=== PATIENT | male | born 1970 | race Hispanic/Latino ===

== ENCOUNTER 2018-12-14 22:00 | Inpatient (IN) | payer MEDICAID ==
--- NOTE | 2018-12-14 22:48 | ED PDOC ---
Arrival/HPI - General Chief Complaint: GI Problem Time Seen by Provider: 12/14/18 22:10 Historian: Patient - History of Present Illness Narrative History of Present Illness (Text): 12/14/18 22:38 48 year old M with Pmh of chronic avascular necrosis (hip), HIV,presents with complaint of discharge from penis and anus which he states is gonorrhea. Patient is sexually active.Also complains of painful hemorrhoid.States he had some rectal blood on occasion. Patient recalls last seeing his doctor 1 month ago. Patient denies any fevers, chills, headache, dizziness, chest pain, shortness of breath, cough, diaphoresis, abdominal pain, nausea, vomiting, diarrhea. Time/Duration: < month Symptom Course: Unchanged Activities at Onset: Light Context: Home Past Medical History - Provider Review Nursing Documentation Reviewed: Yes - Infectious Disease Hx of Infectious Diseases: None - Cardiac Hx Cardiac Disorders: No - Pulmonary Hx Respiratory Disorders: No - Neurological Hx Neurological Disorder: No - HEENT Hx HEENT Disorder: No - Renal Hx Renal Disorder: No - Endocrine/Metabolic Hx Endocrine Disorders: No - Hematological/Oncological Hx Blood Disorders: Yes - Integumentary Hx Dermatological Disorder: No - Musculoskeletal/Rheumatological Hx Musculoskeletal Disorders: Yes Hx Arthritis: Yes Hx Osteoarthritis: Yes Other/Comment: vascular necrosis bilat hips - Gastrointestinal Hx Gastrointestinal Disorders: No - Genitourinary/Gynecological Hx Genitourinary Disorders: Yes Hx Sexually Transmitted Diseases: Yes (gonnorrhea) - Psychiatric Hx Psychophysiologic Disorder: No Hx Substance Use: No - Anesthesia Hx Anesthesia: No Family/Social History - Physician Review Nursing Documentation Reviewed: Yes Family/Social History: No Known Family HX Smoking Status: Never Smoked Hx Alcohol Use: No Hx Substance Use: No Allergies/Home Meds Allergies/Adverse Reactions: Allergies Penicillins Allergy (Verified 12/14/18 22:11) URTICARIA Home Medications: Home Meds Medication Instructions Recorded Confirmed Elviteg/Lynne/Emtric/Tenofo Dis 1 tab PO DAILY 12/14/18 12/14/18 [Stribild Tablet] Sulfamethoxazole/Trimethoprim 1 tab PO DAILY 12/14/18 12/14/18 [Bactrim DS Tab] oxyCODONE/Acetaminophen [Percocet 1 tab PO Q6H PRN 12/14/18 12/14/18 5/325 mg Tab] Review of Systems - Physician Review All systems were reviewed & negative as marked: Yes - Review of Systems Constitutional: Normal Eyes: Normal ENT: Normal Respiratory: Normal Cardiovascular: Normal Gastrointestinal: Other (rectal pain) Skin: Normal Neurological: Normal Endocrine: Normal Hemo/Lymphatic: Normal Psychiatric: Normal Physical Exam Vital Signs Reviewed: Yes Vital Signs Temp Pulse Resp BP Pulse Ox 12/14/18 22:14 98.1 F 76 18 107/86 100 Temperature: Afebrile Blood Pressure: Normal Pulse: Regular Respiratory Rate: Normal Appearance: Positive for: Well-Appearing, Non-Toxic, Comfortable Pain Distress: Moderate Mental Status: Positive for: Alert and Oriented X 3 - Systems Exam Head: Present: Atraumatic, Normocephalic Pupils: Present: PERRL Extroacular Muscles: Present: EOMI Conjunctiva: Present: Normal Mouth: Present: Moist Mucous Membranes Neck: Present: Normal Range of Motion Respiratory/Chest: Present: Clear to Auscultation, Good Air Exchange. No: Respiratory Distress, Accessory Muscle Use Cardiovascular: Present: Regular Rate and Rhythm, Normal S1, S2. No: Murmurs Abdomen: No: Tenderness, Distention, Peritoneal Signs Rectal: Present: Hemorrhoids (Painful, external, non thombrosed hemorrhoid), Other (Purulent rectal discharge) Genitourinary Male: Present: Penile Discharge (white milky, yellowish) Back: Present: Normal Inspection Upper Extremity: Present: Normal Inspection. No: Cyanosis, Edema Lower Extremity: Present: Normal Inspection. No: Edema Neurological: Present: GCS=15, Speech Normal Skin: Present: Warm, Dry, Normal Color. No: Rashes Psychiatric: Present: Alert, Oriented x 3, Normal Insight, Normal Concentration Medical Decision Making ED Course and Treatment: 12/14/18 22:53 Impression: 48 year old M presents with cc of GI bleed. Differential Diagnosis included but are not limited to: -- Hemorrhoids -- STD -- Rectal Abscess -- GI bleed Plan: -- CT Abd/ Pelvis IV contrast -- Chlamydia/GC RNA, TMA -- Labs -- Reassess and disposition Prior Visits: Notes and results from previous visits were reviewed. Progress Notes: 12/15/18 01:48 Case was discussed with Dr. Jeffers. Case was discussed with the medical supply technician and president & ceo [employer]. - RAD Interpretation Narrative RAD Interpretations (Text): 12/15/18 00:50 CT SCAN OF THE ABDOMEN AND PELVIS WITH CONTRAST --Perianal abscess formation measuring 4.7x3.2 cm with associated gas densities. --Prominent surrounding inflammatory fat stranding suggestive of surrounding cellulitis. --Moderately enlarged prostate. --Hypodense areas are noted in the prostate with the largest measuring 1.3 cm on the left side. Findings represent prostatic nodules are again secondary to an infectious/inflammatory pathology like multifocal prostatitis and phlegmonous changes. Clinical evaluation and followup are suggested. --Moderate constipation is noted. --Uncomplicated colonic diverticulosis is seen. --Moderate diffuse spondylosis. Event Promoter: Radiologist - Tatyanaibanne Statement The provider has reviewed the documentation as recorded by the Vladislav Johnson All medical record entries made by the Vladislav were at my direction and personally dictated by me. I have reviewed the chart and agree that the record accurately reflects my personal performance of the history, physical exam, medical decision making, and the department course for this patient. I have also personally directed, reviewed, and agree with the discharge instructions and disposition. Disposition/Present on Arrival - Present on Arrival Any Indicators Present on Arrival: No History of DVT/PE: No History of Uncontrolled Diabetes: No Urinary Catheter: No History of Decub. Ulcer: No History Surgical Site Infection Following: None - Disposition Have Diagnosis and Disposition been Completed?: Yes Diagnosis: Perianal abscess, Cellulitis, STD (male) Disposition: HOSPITALIZED Disposition Time: 01:47 Patient Plan: Admission Patient Problems: Current Active Problems Problem Status Onset Cellulitis Acute Perianal abscess Acute STD (male) Acute Condition: STABLE Discharge Instructions (ExitCare): Cellulitis (ED) Referrals: Carlos Jeter MD [Primary Care Provider] - Follow up with primary Forms: [employer] (Swazi)
[2018-12-14 23:28] LABS: ALB/GLOB RATIO 0.8 (1.1-1.8); ALBUMIN 3.4 g/dL (3.0-4.8); ALT/SGPT 9 U/L (7-56); AST/SGOT 25 U/L (17-59); BLOOD UREA NITROGEN 22 mg/dL (7-21); CALCIUM 8.5 mg/dL (8.4-10.5); GFR NON-AFRICAN AMERICAN > 60; HEMOGLOBIN 10.4 g/dL (14.0-18.0); MEAN CELL VOLUME 90.2 fl (80.0-105.0); MEAN CORPUSCULAR HEMOGLOBIN 28.4 pg (25.0-35.0); MEAN CORPUSCULAR HGB CONC 31.5 g/dl (31.0-37.0); RBC 3.66 10^6/uL (3.5-6.1); RED CELL DISTRIBUTION WIDTH 14.3 % (11.5-14.5); WHITE BLOOD COUNT 5.8 10^3/uL (4.5-11.0)
[2018-12-14] MEDS ORDERED: Iohexol 350 MG/100 ML VIAL ONE (23:47)
[2018-12-15 00:27] LABS: URINE BILIRUBIN NEGATIVE (NEGATIVE); URINE BLOOD SMALL (NEGATIVE); URINE GLUCOSE (UA) NEGATIVE (NEGATIVE); URINE LEUKOCYTE ESTERASE MODERATE Leu/uL (NEGATIVE); URINE PROTEIN 30 mg/dL (<30 mg/dL)
[2018-12-15 00:34] LABS: URINE APPEARANCE SL CLOUDY (CLEAR); URINE COLOR YELLOW (YELLOW)
[2018-12-15 00:40] LABS: URINE EPITHELIAL CELLS 0 - 2 /hpf (0-5); URINE RBC 0 - 2 /hpf (0-2); URINE WBC TNTC /hpf (0-6)
[2018-12-15 00:41] LABS: URINE BACTERIA SMALL /hpf
[2018-12-15] MEDS ORDERED: Gentamicin 240 MG in Sodium Chloride 0.9% 100 ML IM ONE (01:38)
[2018-12-15] MEDS ORDERED: Ciprofloxacin 400mg/200ml D5W 400 MG/200 ML BAG IV STA (01:40)
[2018-12-15] MEDS ORDERED: metroNIDAZOLE IV 500 mg/100 ml 500 MG/100 ML BAG IV STA (01:41)
[2018-12-15] MEDS ORDERED: Gentamicin 80 mg/2mL Inj. IM ONE (01:45)
[2018-12-15] MEDS: Morphine 2 mg/ml ISec IVP PRN ×2 (03:21→13:41)
--- NOTE | 2018-12-15 03:36 | CP.PCM.HP ---
<Redd Monsivais - Last Filed: 12/15/18 04:18> History of Present Illness - History of Present Illness History of Present Illness: PGY-1 History and Physical for Dr. Jeffers Patient is a 48 year old male with PMHx HIV, avascular necrosis of the hip who presents with complaint of penile discharge and rectal pain. Patient states he has had these symptoms for a couple of months. Patient states he first noticed the penile discharge a couple of months ago, stating he contracted an STD from receiving oral sex from a female partner. Patient states soon thereafter he developed rectal pain associated with occasional bleeding. Patient denies being sexually active with multiple partners. Patient admits to subjective fevers in the past, but denies fevers at present. In regards to HIV treatment, patient states he most recently had CD4 count checked 2 months ago, but is unsure which doctor he follows with. He states that his CD4 count is low and his viral load is high. He admitted that he has not been taking his HIV medications for several months due to personal issues at home, noting that he recently had a son pass away. Patient states he has been "bed ridden" for the past year and a half, though he lives alone and cares for himself. He admits to feeling chronically weak and fatigued. PMHx: HIV, avascular necrosis All: Penicillin (Urticaria) Surgeries: Eye trauma surgery as a child Social: Denies tobacco, alcohol, or drug use (denies IVDU). States received STD from single female sexual partner, denies multiple or same-sex partners. Lives alone in apartment, cares for himself. Medications: -Stribild 1 tab PO daily -Bactrim 1 tab PO daily -Percocet 5/325 mg PO Q6 prn -Ensure plus nutritional supplement PMD: Pt unsure of PMD or infectious disease doctor with whom he has followed in the past Present on Admission - Present on Admission Any Indicators Present on Admission: No Review of Systems - Constitutional Constitutional: Fatigue, Weakness. absent: Chills, Fever - EENT Eyes: absent: Blurred Vision, Change in Vision Ears: absent: Dizziness - Cardiovascular Cardiovascular: absent: Chest Pain, Dyspnea - Respiratory Respiratory: absent: Cough, Dyspnea - Gastrointestinal Gastrointestinal: absent: Abdominal Pain, Diarrhea, Nausea, Vomiting Additional comments: Rectal pain - Genitourinary Genitourinary: Dysuria. absent: Difficulty Urinating, Flank Pain, Urinary Incontinence, Urinary Frequency - Reproductive: Male Reproductive:Male: Penile Discharge - Musculoskeletal Musculoskeletal: absent: Back Pain, Neck Pain - Neurological Neurological: absent: Confusion, Dizziness, Numbness - Psychiatric Psychiatric: absent: Anxiety, Depression - Endocrine Endocrine: Fatigue. absent: Palpitations - Hematologic/Lymphatic Hematologic: absent: Easy Bleeding, Easy Bruising Past Patient History - Infectious Disease Hx of Infectious Diseases: None - Past Social History Smoking Status: Never Smoked - CARDIAC Hx Cardiac Disorders: No - PULMONARY Hx Respiratory Disorders: No - NEUROLOGICAL Hx Neurological Disorder: No - HEENT Hx HEENT Problems: No - RENAL Hx Chronic Kidney Disease: No - ENDOCRINE/METABOLIC Hx Endocrine Disorders: No - HEMATOLOGICAL/ONCOLOGICAL Hx Blood Disorders: Yes - INTEGUMENTARY Hx Dermatological Problems: No - MUSCULOSKELETAL/RHEUMATOLOGICAL Hx Musculoskeletal Disorders: Yes Hx Arthritis: Yes Hx Osteoarthritis: Yes Other/Comment: vascular necrosis bilat hips - GASTROINTESTINAL Hx Gastrointestinal Disorders: No - GENITOURINARY/GYNECOLOGICAL Hx Genitourinary Disorders: Yes Hx Sexually Transmitted Disorders: Yes (gonnorrhea) - PSYCHIATRIC Hx Psychophysiologic Disorder: No Hx Substance Use: No - SURGICAL HISTORY Hx Surgeries: No - ANESTHESIA Hx Anesthesia: No Meds Allergies/Adverse Reactions: Allergies Allergy/AdvReac Type Severity Reaction Status Date / Time Penicillins Allergy URTICARIA Verified 12/14/18 22:11 Physical Exam - Constitutional Appears: No Acute Distress, Cachectic, Chronically Ill - Head Exam Head Exam: ATRAUMATIC, NORMOCEPHALIC - Eye Exam Eye Exam: EOMI, Normal appearance - ENT Exam ENT Exam: Mucous Membranes Dry - Respiratory Exam Respiratory Exam: Clear to Auscultation Bilateral - Cardiovascular Exam Cardiovascular Exam: REGULAR RHYTHM, +S1, +S2 - GI/Abdominal Exam GI & Abdominal Exam: Normal Bowel Sounds, Soft. absent: Tenderness - Rectal Exam Rectal Exam: Hemorrhoids. absent: Black Stool, Bloody Stool Additional comments: No active bleeding or prurulence. No abscess/mass appreciated on rectal exam. Rectum exquisitely tender to palpation. - Exam Exam: Uretheral Discharge (Clear, watery discharge). absent: Circumcision, Scrotal Swelling External exam: absent: Erythema, Lacerations, Swelling - Extremities Exam Extremities exam: Positive for: normal inspection. Negative for: pedal edema, tenderness - Neurological Exam Neurological exam: Alert, CN II-XII Intact, Oriented x3 - Psychiatric Exam Psychiatric exam: Normal Affect, Normal Mood - Skin Skin Exam: Dry, Intact Results - Vital Signs Recent Vital Signs: Last Vital Signs Temp 98.1 F 12/14/18 22:14 Pulse 69 12/15/18 03:14 Resp 15 12/15/18 03:14 BP 137/41 L 12/15/18 03:14 Pulse Ox 100 12/15/18 03:14 - Labs Result Diagrams: 12/14/18 23:00 12/14/18 23:00 Labs: Laboratory Results - last 24 hr 12/14/18 12/14/18 12/15/18 23:00 23:00 00:15 WBC 5.8 RBC 3.66 Hgb 10.4 L Hct 33.0 L MCV 90.2 MCH 28.4 MCHC 31.5 RDW 14.3 Plt Count 238 MPV 10.0 Sodium 140 Potassium 3.8 Chloride 102 Carbon Dioxide 30 Anion Gap 12 BUN 22 H Creatinine 0.8 Est GFR ( Amer) > 60 Est GFR (Non-Af Amer) > 60 Random Glucose 101 Calcium 8.5 Total Bilirubin 0.7 AST 25 ALT 9 Alkaline Phosphatase 90 Total Protein 8.0 Albumin 3.4 Globulin 4.5 Albumin/Globulin Ratio 0.8 L Urine Color Yellow Urine Appearance Sl cloudy Urine pH 7.0 Ur Specific [place] 1.015 Urine Protein 30 H Urine Glucose (UA) Negative Urine Ketones Negative Urine Blood Small H Urine Nitrate Negative Urine Bilirubin Negative Urine Urobilinogen 2.0 H Ur Leukocyte Esterase Moderate H Urine RBC 0 - 2 Urine WBC Tntc H Ur Epithelial Cells 0 - 2 Urine Bacteria Small Assessment & Plan - Assessment and Plan (Free Text) Assessment: Perirectal Abscess CT abdomen/pelvis 12/15: --Perianal abscess formation measuring 4.7x3.2 cm with associated gas densities. --Prominent surrounding inflammatory fat stranding suggestive of surrounding cellulitis. --Moderately enlarged prostate. --Hypodense areas are noted in the prostate with the largest measuring 1.3 cm on the left side. Findings represent prostatic nodules are again secondary to an infectious/inflammatory pathology like multifocal prostatitis and phlegmonous changes. Clinical evaluation and followup are suggested. --Moderate constipation is noted. --Uncomplicated colonic diverticulosis is seen. --Moderate diffuse spondylosis. -Afebrile, no leukocytosis -Surgery consulted, Dr. Skinner - f/u recs -ID consulted, Dr. Mendoza - f/u recs Abx: -Penicillin allergic (urticaria) -Received Cipro, Azithromycin, Gentamycin, and Flagyl in ED -Meropenem 1gm IV Q8 to start 12/16 -Vancomycin 1gm IV daily to start 12/16 -Morphine 2mg IV Q6 prn Penile Discharge -GC/Chlamydia - f/u -Merem/Vanco Possible UTI -Moderate leukocyte esterase on UA -Dorinda/Vanco HIV -F/u CD4 count -ID, Dr. Mendoza Meds -Bactrim 1 tab PO daily -Home Stribild held - combination pill not available from inpatient pharmacy. Discussed with patient, he will obtain his home medications in the morning to take daily as inpatient. PPx -DVT: Heparin 5000 U SC daily -Regular diet Assessment and plan discussed with Dr. Zeyad Monsivais, PGY-1 <Lacie Jeffers - Last Filed: 12/15/18 06:38> Results - Vital Signs Recent Vital Signs: Last Vital Signs Temp 98.1 F 12/14/18 22:14 Pulse 73 12/15/18 03:39 Resp 18 12/15/18 03:39 BP 137/41 L 12/15/18 03:14 Pulse Ox 100 12/15/18 03:14 - Labs Result Diagrams: 12/14/18 23:00 12/14/18 23:00 Labs: Laboratory Results - last 24 hr 12/14/18 12/14/18 12/15/18 23:00 23:00 00:15 WBC 5.8 RBC 3.66 Hgb 10.4 L Hct 33.0 L MCV 90.2 MCH 28.4 MCHC 31.5 RDW 14.3 Plt Count 238 MPV 10.0 Sodium 140 Potassium 3.8 Chloride 102 Carbon Dioxide 30 Anion Gap 12 BUN 22 H Creatinine 0.8 Est GFR ( Amer) > 60 Est GFR (Non-Af Amer) > 60 Random Glucose 101 Calcium 8.5 Total Bilirubin 0.7 AST 25 ALT 9 Alkaline Phosphatase 90 Total Protein 8.0 Albumin 3.4 Globulin 4.5 Albumin/Globulin Ratio 0.8 L Urine Color Yellow Urine Appearance Sl cloudy Urine pH 7.0 Ur Specific [place] 1.015 Urine Protein 30 H Urine Glucose (UA) Negative Urine Ketones Negative Urine Blood Small H Urine Nitrate Negative Urine Bilirubin Negative Urine Urobilinogen 2.0 H Ur Leukocyte Esterase Moderate H Urine RBC 0 - 2 Urine WBC Tntc H Ur Epithelial Cells 0 - 2 Urine Bacteria Small Attending/Attestation - Attestation I have personally seen and examined this patient.: Yes I have fully participated in the care of the patient.: Yes I have reviewed all pertinent clinical information: Yes Notes (Text): 12/15/18 06:37 seen and examined. discussed with resident. A&P as above.
--- NOTE | 2018-12-15 05:49 | CP.PCM.CON ---
History of Present Illness - History of Present Illness History of Present Illness: Surgery Consult note. Dr. Skinner 48yo M with PMHx of HIV (recent medication non-compliance), Avascular Necrosis of bilateral hips who [place] [facility] with penile discharge and Rectal discharge and pain. Patient reports penile discharge which started 2 months ago and was self treated with bactrim at home. Approximately 1 month ago, he noted rectal pain and 2 weeks ago, he noted rectal discharge. He denies any fevers or chills. States that he has pain with defecation as well. No Chest pain, no shortness of breath. No N/V/D. No abdominal pain. Does report penile discharge off and on. No sick contacts PMHx: HIV, Avascular Necrosis of bilateral hips PSHx: Eye surgery as child Family Hx: non-contributory Social Hx: Denies Tobacco use; Denies Alcohol use; Denies illicit drugs Allergy: PCNs Review of Systems - Review of Systems All systems: reviewed and no additional remarkable complaints except - Constitutional Constitutional: Lethargy, Malaise. absent: Chills, Fever - EENT Ears: absent: Ear Pain - Cardiovascular Cardiovascular: absent: Chest Pain, Dyspnea - Respiratory Respiratory: absent: Cough, Dyspnea - Gastrointestinal Gastrointestinal: absent: Abdominal Pain, Melena, Nausea, Vomiting Additional comments: Rectal pain and discharge - Genitourinary Genitourinary: Dysuria - Reproductive: Male Reproductive:Male: Penile Discharge Past Patient History - Infectious Disease Hx of Infectious Diseases: None - Past Medical History & Family History Past Medical History?: Yes Past Family History: Reviewed and not pertinent - Past Social History Smoking Status: Never Smoked Alcohol: None Drugs: Denies - CARDIAC Hx Cardiac Disorders: No - PULMONARY Hx Respiratory Disorders: No - NEUROLOGICAL Hx Neurological Disorder: No - HEENT Hx HEENT Problems: No - RENAL Hx Chronic Kidney Disease: No - ENDOCRINE/METABOLIC Hx Endocrine Disorders: No - HEMATOLOGICAL/ONCOLOGICAL Hx Blood Disorders: Yes - INTEGUMENTARY Hx Dermatological Problems: No - MUSCULOSKELETAL/RHEUMATOLOGICAL Hx Musculoskeletal Disorders: Yes Hx Arthritis: Yes Hx Osteoarthritis: Yes Other/Comment: vascular necrosis bilat hips - GASTROINTESTINAL Hx Gastrointestinal Disorders: No - GENITOURINARY/GYNECOLOGICAL Hx Genitourinary Disorders: Yes Hx Sexually Transmitted Disorders: Yes (gonnorrhea) - PSYCHIATRIC Hx Psychophysiologic Disorder: No Hx Substance Use: No - SURGICAL HISTORY Hx Surgeries: No - ANESTHESIA Hx Anesthesia: No Meds Allergies/Adverse Reactions: Allergies Allergy/AdvReac Type Severity Reaction Status Date / Time Penicillins Allergy URTICARIA Verified 12/14/18 22:11 - Medications Medications: Current Medications Heparin Sodium (Porcine) (Heparin) 5,000 units SC Q12 ESTUARDO; Protocol Meropenem (Merrem Iv 1 Gm Premix) 1 gm in 50 mls @ 12.5 mls/hr IVPB Q8 ESTUARDO; Protocol Stop: 12/16/18 17:59 Vancomycin HCl (Vancomycin 1gm) 1 gm in 250 mls @ 167 mls/hr IVPB DAILY ESTUARDO; Protocol Morphine Sulfate (Morphine) 2 mg IVP Q6 PRN PRN Reason: Pain, moderate (4-7) Last Admin: 12/15/18 03:21 Dose: 2 mg Non-Formulary Medication (Elviteg/Lynne/Emtric/Tenofo Dis [Stribild Tablet]) 1 tab PO DAILY ESTUARDO Trimethoprim/Sulfamethoxazole (Bactrim Ds Tab) 1 tab PO DAILY ESTUARDO; Protocol Physical Exam - Constitutional Appears: Non-toxic, No Acute Distress, Cachectic, Chronically Ill - Head Exam Head Exam: ATRAUMATIC, NORMAL INSPECTION, NORMOCEPHALIC - Eye Exam Eye Exam: EOMI, Normal appearance. absent: Scleral icterus - ENT Exam ENT Exam: Mucous Membranes Moist - Respiratory Exam Respiratory Exam: NORMAL BREATHING PATTERN. absent: Accessory Muscle Use, Respiratory Distress - GI/Abdominal Exam GI & Abdominal Exam: Soft. absent: Distended, Firm, Guarding, Tenderness - Rectal Exam Additional comments: Perianal fluctuance. Purulent discharge noted into the anal canal when rectal performed. No melena or gross blood noted. - Extremities Exam Extremities exam: Positive for: normal inspection. Negative for: calf tenderness - Back Exam Back exam: NORMAL INSPECTION - Neurological Exam Neurological exam: Alert, Oriented x3 - Psychiatric Exam Psychiatric exam: Normal Affect, Normal Mood - Skin Skin Exam: Dry, Intact, Normal Color, Warm Results - Vital Signs Recent Vital Signs: Last Vital Signs Temp 98.1 F 12/14/18 22:14 Pulse 73 12/15/18 03:39 Resp 18 12/15/18 03:39 BP 137/41 L 12/15/18 03:14 Pulse Ox 100 12/15/18 03:14 - Labs Result Diagrams: 12/14/18 23:00 12/14/18 23:00 Labs: Laboratory Results - last 24 hr 12/14/18 12/14/18 12/15/18 23:00 23:00 00:15 WBC 5.8 RBC 3.66 Hgb 10.4 L Hct 33.0 L MCV 90.2 MCH 28.4 MCHC 31.5 RDW 14.3 Plt Count 238 MPV 10.0 Sodium 140 Potassium 3.8 Chloride 102 Carbon Dioxide 30 Anion Gap 12 BUN 22 H Creatinine 0.8 Est GFR ( Amer) > 60 Est GFR (Non-Af Amer) > 60 Random Glucose 101 Calcium 8.5 Total Bilirubin 0.7 AST 25 ALT 9 Alkaline Phosphatase 90 Total Protein 8.0 Albumin 3.4 Globulin 4.5 Albumin/Globulin Ratio 0.8 L Urine Color Yellow Urine Appearance Sl cloudy Urine pH 7.0 Ur Specific [place] 1.015 Urine Protein 30 H Urine Glucose (UA) Negative Urine Ketones Negative Urine Blood Small H Urine Nitrate Negative Urine Bilirubin Negative Urine Urobilinogen 2.0 H Ur Leukocyte Esterase Moderate H Urine RBC 0 - 2 Urine WBC Tntc H Ur Epithelial Cells 0 - 2 Urine Bacteria Small Assessment & Plan - Assessment and Plan (Free Text) Assessment: 48yo M with perianal abscess - CT noted with 4.7 x 3.2cm perianal abscess Plan: - Possible OR today - NPO for now - Continue warm compresses and sitz baths - Abx - Pain management Further recs as per Dr. Brody Thurston PGY2 surgery
[2018-12-15 07:06] LABS: INR 1.19; PARTIAL THROMBOPLASTIN TIME 31.5 Seconds (26.9-38.3); PROTHROMBIN TIME 13.4 SECONDS (9.4-12.5)
[2018-12-15 07:12] LABS: ALB/GLOB RATIO 0.8 (1.1-1.8); ALBUMIN 3.7 g/dL (3.0-4.8); ALT/SGPT 6 U/L (7-56); AST/SGOT 33 U/L (17-59); BLOOD UREA NITROGEN 19 mg/dL (7-21); CALCIUM 8.6 mg/dL (8.4-10.5); GFR NON-AFRICAN AMERICAN > 60
[2018-12-15 07:15] LABS: BASO # 0.02 K/mm3 (0.0-2.0); BASO % 0.3 % (0.0-3.0); EOS # 0.5 (0.0-0.7); EOS % 7.5 % (1.5-5.0); HEMOGLOBIN 10.3 g/dL (14.0-18.0); LYMPH # 1.4 (1.2-3.4); LYMPH % 22.1 % (22.0-35.0); MEAN CELL VOLUME 89.1 fl (80.0-105.0); MEAN CORPUSCULAR HEMOGLOBIN 28.1 pg (25.0-35.0); MEAN CORPUSCULAR HGB CONC 31.5 g/dl (31.0-37.0); MEAN PLATELET VOLUME 10.2 fl (7.0-11.0); MONO # 0.7 (0.1-0.6); MONO % 11.9 % (1.0-6.0); RBC 3.67 10^6/uL (3.5-6.1); RED CELL DISTRIBUTION WIDTH 14.3 % (11.5-14.5); WHITE BLOOD COUNT 6.1 10^3/uL (4.5-11.0)
[2018-12-15 08:57] LABS: IRON 38 ug/dL (45-180)
[2018-12-15 09:07] LABS: % IRON SATURATION 20 % (20-55); TOTAL IRON BINDING CAPACITY 195 ug/dL (261-462)
[2018-12-15] MEDS: Tmp-Smz 800 mg-160 mg DS Tab PO SCH (09:25)
[2018-12-15] MEDS: Vancomycin 1gm in NS 250ml 1 GM/250 ML BAG IVPB SCH (09:25)
[2018-12-15] MEDS ORDERED: Non Formulary Medication (Elviteg/Cobi/Emtric/Tenofo Dis [Stribild Tablet] 1 TAB) PO SCH (10:00)
--- NOTE | 2018-12-15 10:46 | CT ---
Date of service: 12/14/2018 PROCEDURE: CT Abdomen and Pelvis with contrast HISTORY: r/o rectal abscess COMPARISON: None. TECHNIQUE: Contrast dose: 100 cc of Omni 350 Radiation dose: Total exam DLP = 216.44 mGy-cm. This CT exam was performed using one or more of the following dose reduction techniques: Automated exposure control, adjustment of the mA and/or kV according to patient size, and/or use of iterative reconstruction technique. FINDINGS: LOWER THORAX: Unremarkable. LIVER: Unremarkable. No gross lesion or ductal dilatation. GALLBLADDER AND BILE DUCTS: Unremarkable. PANCREAS: Unremarkable. No gross lesion or ductal dilatation. SPLEEN: Unremarkable. ADRENALS: Unremarkable. No mass. KIDNEYS AND URETERS: Unremarkable. No hydronephrosis. No solid mass. VASCULATURE: Unremarkable. No aortic aneurysm. No aortic atherosclerotic calcification or mural plaque present. BOWEL: There is a perianal abscess containing fluid and gas densities. This measures approximately 2 x 4 cm. APPENDIX: Normal appendix. PERITONEUM: Unremarkable. No free fluid. No free air. LYMPH NODES: Unremarkable. No enlarged lymph nodes. BLADDER: Unremarkable. REPRODUCTIVE: The prostate is enlarged and heterogeneous in density with several hypodense nodules. Prostate measures 37 x 55 mm BONES: No acute fracture. OTHER FINDINGS: The report concurs with the preliminary [facility] report IMPRESSION: There is a perianal abscess containing fluid and gas densities. This measures approximately 2 x 4 cm. The prostate is enlarged and heterogeneous in density with several hypodense nodules. Prostate measures 37 x 55 mm
[2018-12-15] MEDS ORDERED: Bupivacaine 0.5% 50 ML IJ ONE ×2 (12:12→12:30)
--- NOTE | 2018-12-15 20:49 | CON ---
DATE: 12/15/2018 The patient was seen earlier today. CHIEF COMPLAINT: Rectal pain, discomfort x2 months. HISTORY OF PRESENT ILLNESS: This is a 48-year-old male with positive HIV, possibly AIDS, noncompliant to his HIV medication, which is Stribild; follows at clinic in [place] although he has not been going there, and he had a penile discharge, an anal discharge and he is having anal pain and discovered to have rectal abscess and admitted to the hospital for drainage. REVIEW OF SYSTEMS: Review of systems are noted. PAST MEDICAL HISTORY: Significant for HIV and AIDS, arthritis, bronchitis, and the patient also has avascular necrosis of the hip. He has had gonorrhea in the past. MEDICATIONS: He has been on Bactrim, PCP prophylaxis which means that his T cells were less than 200. 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 PHYSICAL EXAMINATION: GENERAL: He is in bed. No acute distress. VITAL SIGNS: Temperature of 98, blood pressure is 130/40, respiratory rate of 18, and heart rate of 69. HEENT: Unremarkable. NECK: Supple. LUNGS: Decreased breath sounds. HEART: Normal S1 and S2. GASTROINTESTINAL: Abdomen is soft and nontender. RECTAL: Reveals a discharge, there is internal drainage and also what appears to be a perirectal abscess. LABORATORY DATA: Laboratory examination reveals a white count of 5, hemoglobin of 10, and platelets of 238. Chemistry reveals a BUN of 22 and creatinine of 0.8. Urinalysis is noted. Microbiology is pending. The patient had a CAT scan of the abdomen and pelvis that reveals a perianal abscess, containing fluid, gas and densities. His history and physical examination is noted. ASSESSMENT AND PLAN: A 48-year-old male with acquired immunodeficiency syndrome and perianal abscess, WHO IS ALLERGIC TO PENICILLIN, was treated with meropenem, was looked for chlamydia, gonorrhea, and syphilis. I will make further recommendations. Justino Mendoza MD
--- NOTE | 2018-12-15 22:16 | PCM.SURG1 ---
Surgeon's Initial Post Op Note - Surgeon's Notes Surgeon: Dr. Skinner Hoisting Engineer Pile Driving: Dr. Goode PGY3 Type of Anesthesia: Local Pre-Operative Diagnosis: Perirectal abscess Operative Findings: same Post-Operative Diagnosis: same Operation Performed: incision and drainage of perirectal abscess Specimen/Specimens Removed: purulent fluid Estimated Blood Loss: EBL {In ML}: 5 Blood Products Given: N/A Drains Used: No Drains Post-Op Condition: Good Date of Surgery/Procedure: 12/15/18 Time of Surgery/Procedure: 12:30
[2018-12-16] MEDS: Meropenem IV 1 gm in NS 1 GM/50 ML BAG IVPB SCH ×3 (05:28→22:46)
[2018-12-16 07:11] LABS: BASO # 0.03 K/mm3 (0.0-2.0); BASO % 0.8 % (0.0-3.0); EOS # 0.5 (0.0-0.7); EOS % 14.8 % (1.5-5.0); LYMPH # 1.1 (1.2-3.4); LYMPH % 31.6 % (22.0-35.0); MEAN CELL VOLUME 88.9 fl (80.0-105.0); MEAN CORPUSCULAR HEMOGLOBIN 27.7 pg (25.0-35.0); MEAN CORPUSCULAR HGB CONC 31.2 g/dl (31.0-37.0); MEAN PLATELET VOLUME 10.2 fl (7.0-11.0); MONO # 0.6 (0.1-0.6); MONO % 15.9 % (1.0-6.0); RBC 3.97 10^6/uL (3.5-6.1); RED CELL DISTRIBUTION WIDTH 14.2 % (11.5-14.5); WHITE BLOOD COUNT 3.6 10^3/uL (4.5-11.0)
[2018-12-16 07:21] LABS: ALB/GLOB RATIO 0.8 (1.1-1.8); ALBUMIN 3.7 g/dL (3.0-4.8); ALT/SGPT 14 U/L (7-56); AST/SGOT 32 U/L (17-59); BLOOD UREA NITROGEN 19 mg/dL (7-21); CALCIUM 8.8 mg/dL (8.4-10.5); GFR NON-AFRICAN AMERICAN > 60
--- NOTE | 2018-12-16 07:45 | CP.PCM.PN ---
Subjective - Date & Time of Evaluation Date of Evaluation: 12/16/18 Time of Evaluation: 07:40 - Subjective Subjective: Martineztoroanne Barnidhi PGY1 Progress Note for Dr. Skinner Pt was examined at bedside this morning. He reports mild pain in the rectal area. He denies fever, chills, abdominal pain, nausea, or vomiting. He has no other complaints today. Objective - Vital Signs/Intake and Output Vital Signs (last 24 hours): Temp Pulse Resp BP Pulse Ox 97 F L 62 16 83/50 L 99 12/16/18 06:00 12/16/18 06:00 12/16/18 06:00 12/16/18 06:00 12/16/18 06:00 Intake and Output: 12/16/18 12/16/18 06:59 18:59 Intake Total 840 Output Total 900 Balance -60 - Medications Medications: Current Medications Heparin Sodium (Porcine) (Heparin) 5,000 units SC Q8 ESTUARDO; Protocol Last Admin: 12/15/18 06:19 Dose: Not Given Meropenem (Merrem Iv 1 Gm Premix) 1 gm in 50 mls @ 12.5 mls/hr IVPB Q8 ESTUARDO; Protocol Stop: 12/16/18 17:59 Last Admin: 12/16/18 05:28 Dose: 12.5 mls/hr Vancomycin HCl (Vancomycin 1gm) 1 gm in 250 mls @ 167 mls/hr IVPB DAILY ESTUARDO; Protocol Last Admin: 12/15/18 09:25 Dose: 167 mls/hr Morphine Sulfate (Morphine) 2 mg IVP Q6 PRN PRN Reason: Pain, moderate (4-7) Last Admin: 12/15/18 13:41 Dose: 2 mg Non-Formulary Medication (Elviteg/Lynne/Emtric/Tenofo Dis [Stribild Tablet]) 1 tab PO DAILY ESTUARDO Trimethoprim/Sulfamethoxazole (Bactrim Ds Tab) 1 tab PO DAILY ESTUARDO; Protocol Last Admin: 12/15/18 09:25 Dose: 1 tab - Labs Labs: 12/16/18 06:45 12/16/18 06:45 PT 13.4 SECONDS (9.4-12.5) H 12/15/18 06:30 INR 1.19 12/15/18 06:30 APTT 31.5 Seconds (26.9-38.3) 12/15/18 06:30 - Constitutional Appears: Well, No Acute Distress - Head Exam Head Exam: ATRAUMATIC, NORMOCEPHALIC - Eye Exam Eye Exam: EOMI, Normal appearance - ENT Exam ENT Exam: Mucous Membranes Moist - Respiratory Exam Respiratory Exam: Clear to Ausculation Bilateral, NORMAL BREATHING PATTERN. absent: Rales, Rhonchi, Wheezes - Cardiovascular Exam Cardiovascular Exam: REGULAR RHYTHM, +S1, +S2. absent: Gallop, Rubs, Murmur - GI/Abdominal Exam GI & Abdominal Exam: Soft, Normal Bowel Sounds. absent: Distended, Tenderness - Rectal Exam Additional comments: 2x2cm healing abscess incision site with minimal drainage and surrounding erythema. - Extremities Exam Extremities Exam: Normal Inspection - Neurological Exam Neurological Exam: Alert, Awake, Oriented x3 - Psychiatric Exam Psychiatric exam: Normal Affect, Normal Mood - Skin Skin Exam: Normal Color Assessment and Plan - Assessment and Plan (Free Text) Assessment: 48yo M with PMH HIV s/p I&D of perirectal abscess. Plan: - POD #1 I&D of perirectal abscess - packing changed - surgically cleared for discharge - d/c with antibiotic regimen as per primary - recommending visiting nurse to assist with packing changes - sitz baths at home further recommendations as per Dr. Skinner
[2018-12-16] MEDS: Morphine 2 mg/ml ISec IVP PRN ×2 (08:39→16:51)
[2018-12-16] MEDS: Tmp-Smz 800 mg-160 mg DS Tab PO SCH (09:40)
[2018-12-16] MEDS: Vancomycin 1gm in NS 250ml 1 GM/250 ML BAG IVPB SCH (09:40)
[2018-12-16] MEDS: Sodium Chloride 0.9% 1,000 ML IV SCH (11:26)
[2018-12-16 15:14] VITALS: O2SAT 98
--- NOTE | 2018-12-16 15:51 | CP.PCM.PN ---
<Brody Black - Last Filed: 12/16/18 15:47> Subjective - Date & Time of Evaluation Date of Evaluation: 12/16/18 Time of Evaluation: 08:00 - Subjective Subjective: Brody Black, PGY1 Medicine Progress Note for Dr. Henley Patient seen and examined at bedside this morning. Patient says he no longer has milky discharge from his penis. He tolerated I&D of zakia-rectal abscess well yesterday. Denies cp, sob, n/v/d, fever, chills. A full 12 point ROS was conducted and unremarkable except as stated above. Objective - Vital Signs/Intake and Output Vital Signs (last 24 hours): Temp Pulse Resp BP Pulse Ox 97.9 F 64 18 102/57 L 98 12/16/18 14:00 12/16/18 14:00 12/16/18 14:00 12/16/18 14:00 12/16/18 14:00 Intake and Output: 12/16/18 12/16/18 06:59 18:59 Intake Total 840 480 Output Total 900 600 Balance -60 -120 - Medications Medications: Current Medications Heparin Sodium (Porcine) (Heparin) 5,000 units SC Q8 ESTUARDO; Protocol Last Admin: 12/15/18 06:19 Dose: Not Given Meropenem (Merrem Iv 1 Gm Premix) 1 gm in 50 mls @ 12.5 mls/hr IVPB Q8 ESTUARDO; Protocol Stop: 12/16/18 17:59 Last Admin: 12/16/18 13:07 Dose: 12.5 mls/hr Vancomycin HCl (Vancomycin 1gm) 1 gm in 250 mls @ 167 mls/hr IVPB DAILY ESTUARDO; Protocol Last Admin: 12/16/18 09:40 Dose: 167 mls/hr Sodium Chloride (Sodium Chloride 0.9%) 1,000 mls @ 80 mls/hr IV .[id number] ESTUARDO Last Admin: 12/16/18 11:26 Dose: 80 mls/hr Morphine Sulfate (Morphine) 2 mg IVP Q6 PRN PRN Reason: Pain, moderate (4-7) Last Admin: 12/16/18 08:39 Dose: 2 mg Non-Formulary Medication (Elviteg/Lynne/Emtric/Tenofo Dis [Stribild Tablet]) 1 tab PO DAILY ESTUARDO Trimethoprim/Sulfamethoxazole (Bactrim Ds Tab) 1 tab PO DAILY ESTUARDO; Protocol Last Admin: 12/16/18 09:40 Dose: 1 tab - Labs Labs: 12/16/18 06:45 12/16/18 06:45 PT 13.4 SECONDS (9.4-12.5) H 12/15/18 06:30 INR 1.19 12/15/18 06:30 APTT 31.5 Seconds (26.9-38.3) 12/15/18 06:30 - Constitutional Appears: Cachectic - Head Exam Head Exam: ATRAUMATIC, NORMAL INSPECTION, NORMOCEPHALIC - Eye Exam Eye Exam: EOMI, Normal appearance - ENT Exam ENT Exam: Mucous Membranes Moist - Respiratory Exam Respiratory Exam: Clear to Ausculation Bilateral, NORMAL BREATHING PATTERN. absent: Accessory Muscle Use, Chest Wall Tenderness, Rales, Rhonchi, Wheezes - Cardiovascular Exam Cardiovascular Exam: RRR, +S1, +S2 - GI/Abdominal Exam GI & Abdominal Exam: Soft, Normal Bowel Sounds. absent: Tenderness - Rectal Exam Additional comments: Patient is s/p per-rectal abscess I&D. Packing is in place. - Exam Additional comments: No lesions on penis. No drainage noted. - Extremities Exam Extremities Exam: Full ROM, Normal Capillary Refill, Normal Inspection. absent: Joint Swelling, Pedal Edema - Back Exam Back Exam: NORMAL INSPECTION - Neurological Exam Neurological Exam: Alert, Awake, Oriented x3 - Psychiatric Exam Psychiatric exam: Normal Affect, Normal Mood - Skin Skin Exam: Dry, Intact, Normal Color, Warm Assessment and Plan - Assessment and Plan (Free Text) Assessment: Patient is a 48 y/o M with PMHx AIDS (non-compliant with HIV medications) and avascular necrosis of the hip who presented to the ED for white, milky penile discharge and rectal pain. Patient admitted for zakia-rectal abscess and is s/p I&D. Patient also admitted for penile discharge 2/2 Gonorrhea vs Chlamydia. Plan: Zakia-rectal Abscess - s/p I&D on 12/15; packing in place - pathology report: no atypical cells - f/u wound cx - c/w warm compresses and sitz bath - c/w pain control with morphine 2mg IVP q6 prn - c/w IV antibiotics - Surgery on consult (Dr. Skinner). Recs appreciated. - CT A/P: perianal abscess formation Penile Discharge 2/2 Gonorrhea vs Chlamydia - c/w merrem, vanco, and bactrim - leukopenia; wbc 3.6 down from 6.1 - blood cx negative (prelim) - UCx negative - RPR and FTA-ABS non-reactive at this time; likely not syphilis - ID is on consult (Dr. Mendoza) AIDS - c/w bactrim given low CD4 count - f/u CD4 count - Cachectic 2/2 AIDS; music producer consulted - Non-compliant with HIV medication at home (Stribild) Anemia of Chronic Disease - Hgb 11 - stable - Continue to monitor; no evidence of overt bleeding DVT ppx: hep sc GI ppx: not indicated Diet: regular Physical therapy also on board for weakness. Social work is on board. Dispo: Monitor patient on the floor. Follow up recs from ID in regards to restarting HIV medications even though patient is non-compliant. Pending culture results. Case was discussed and reviewed with Attending Physician, Dr. Henley <Rush Henley - Last Filed: 12/16/18 16:56> Objective - Vital Signs/Intake and Output Vital Signs (last 24 hours): Temp Pulse Resp BP Pulse Ox 97.9 F 64 18 102/57 L 98 12/16/18 14:00 12/16/18 14:00 12/16/18 14:00 12/16/18 14:00 12/16/18 14:00 Intake and Output: 12/16/18 12/16/18 06:59 18:59 Intake Total 840 480 Output Total 900 600 Balance -60 -120 - Medications Medications: Current Medications Heparin Sodium (Porcine) (Heparin) 5,000 units SC Q8 ESTUARDO; Protocol Last Admin: 12/15/18 06:19 Dose: Not Given Meropenem (Merrem Iv 1 Gm Premix) 1 gm in 50 mls @ 12.5 mls/hr IVPB Q8 ESTUARDO; Protocol Stop: 12/16/18 17:59 Last Admin: 12/16/18 13:07 Dose: 12.5 mls/hr Vancomycin HCl (Vancomycin 1gm) 1 gm in 250 mls @ 167 mls/hr IVPB DAILY ESTUARDO; Protocol Last Admin: 12/16/18 09:40 Dose: 167 mls/hr Sodium Chloride (Sodium Chloride 0.9%) 1,000 mls @ 80 mls/hr IV .[id number] ESTUARDO Last Admin: 12/16/18 11:26 Dose: 80 mls/hr Morphine Sulfate (Morphine) 2 mg IVP Q6 PRN PRN Reason: Pain, moderate (4-7) Last Admin: 12/16/18 08:39 Dose: 2 mg Non-Formulary Medication (Elviteg/Lynne/Emtric/Tenofo Dis [Stribild Tablet]) 1 tab PO DAILY ESTUARDO Trimethoprim/Sulfamethoxazole (Bactrim Ds Tab) 1 tab PO DAILY ESTUARDO; Protocol Last Admin: 12/16/18 09:40 Dose: 1 tab - Labs Labs: 12/16/18 06:45 12/16/18 06:45 PT 13.4 SECONDS (9.4-12.5) H 12/15/18 06:30 INR 1.19 12/15/18 06:30 APTT 31.5 Seconds (26.9-38.3) 12/15/18 06:30 Attending/Attestation - Attestation I have personally seen and examined this patient.: Yes I have fully participated in the care of the patient.: Yes I have reviewed all pertinent clinical information, including history, physical exam and plan: Yes Notes (Text): 12/16/18 16:51 48 year old male with past medical history of HIV/AIDs, medication noncompliance and history of avascular necrosis of hip who presented with complaint of penile discharge and rectal pain. He was found to have zakia-rectal abscess on CT scan and is s/p I&D POD #1. Continue with iv antibiotics as per ID while awaiting cultures. Continue with wound care and dressing changes as per surgery. Rush Henley MD Hospitalist.
--- NOTE | 2018-12-17 00:47 | PN ---
DATE: 12/16/2018 SUBJECTIVE: The patient was seen earlier today, doing better. PHYSICAL EXAMINATION VITAL SIGNS: Temperature is 97, blood pressure is 102/50, respiratory rate of 18. HEENT: Unremarkable. NECK: Supple. LUNGS: Have decreased breath sounds. HEART: Normal S1 and S2. ABDOMEN: Soft. LABORATORY DATA: Reveals a white count of 3.6, hemoglobin of 11. BUN of 19, creatinine of 1. Urinalysis is noted. Serology is noted. Microbiology reveals a is negative. Blood cultures are negative. Urine cultures are negative. The abscess cultures are pending. MEDICATIONS: Review of orders reveals the patient is on Bactrim and vancomycin. Meropenem was discontinued by pharmacy. ASSESSMENT AND PLAN: A 48-year-old male with positive human deficiency virus and possible acquired immunodeficiency syndrome, who is noncompliant with his medications which is supposed to be Stribild, admitted with perianal abscess. HE IS ALLERGIC TO PENICILLIN. On vancomycin and meropenem. Pending cultures from the incision and drainage. RPR is negative. FTA is nonreactive. GC and Chlamydia workup are pending. We will follow with you. Justino Mendoza MD
[2018-12-17] MEDS: Meropenem IV 1 gm in NS 1 GM/50 ML BAG IVPB SCH ×2 (06:20→15:03)
[2018-12-17] MEDS: Sodium Chloride 0.9% 1,000 ML IV SCH ×2 (06:22→15:34)
[2018-12-17 07:14] LABS: BASO # 0.01 K/mm3 (0.0-2.0); BASO % 0.2 % (0.0-3.0); EOS # 0.6 (0.0-0.7); EOS % 13.1 % (1.5-5.0); HEMOGLOBIN 10.3 g/dL (14.0-18.0); LYMPH # 1.2 (1.2-3.4); LYMPH % 26.9 % (22.0-35.0); MEAN CELL VOLUME 89.3 fl (80.0-105.0); MEAN CORPUSCULAR HEMOGLOBIN 27.5 pg (25.0-35.0); MEAN CORPUSCULAR HGB CONC 30.8 g/dl (31.0-37.0); MEAN PLATELET VOLUME 9.9 fl (7.0-11.0); MONO # 0.7 (0.1-0.6); MONO % 15.9 % (1.0-6.0); RBC 3.74 10^6/uL (3.5-6.1); RED CELL DISTRIBUTION WIDTH 14.3 % (11.5-14.5); WHITE BLOOD COUNT 4.3 10^3/uL (4.5-11.0)
[2018-12-17 07:43] VITALS: TEMP 98.2
[2018-12-17 07:57] LABS: ALB/GLOB RATIO 0.7 (1.1-1.8); ALBUMIN 3.1 g/dL (3.0-4.8); ALT/SGPT < 6 U/L (7-56); AST/SGOT 32 U/L (17-59); BLOOD UREA NITROGEN 21 mg/dL (7-21); CALCIUM 8.2 mg/dL (8.4-10.5); GFR NON-AFRICAN AMERICAN > 60
--- NOTE | 2018-12-17 08:13 | OP ---
PROCEDURE DATE: 12/15/2018 INDICATION FOR PROCEDURE: Mr. Anaya is a very pleasant 48-year-old male with a past medical history of HIV, avascular necrosis of bilateral hips, who presented to [facility] with complaints of rectal discharge and pain. The patient had a CT abdomen and pelvis done which demonstrated a perirectal abscess. So the patient was scheduled to the operating room for an incision and drainage of the perirectal abscess. DESCRIPTION OF PROCEDURE: The patient was brought to the operating room and local anesthesia was induced. The patient was placed on the operating table in the supine position. A timeout was completed verifying correct patient, procedure, site, positioning prior to beginning the procedure. A rectal examination was performed and the abscess was identified and confirmed to be on the infralevator region. The patient was prepped and draped in the usual sterile fashion. Local anesthetic was injected as a perianal nerve block. An incision was made using an #11 scalpel through the skin over the abscess as close as possible to the anal verge. The surrounding structures were dissected using a hemostat on to the abscess was encountered. The hemostat was then used to break up loculations, possible suction from the cavity and was also sent out for culture. A finger was introduced to confirm the abscess of remaining loculations. The abscess was then thoroughly irrigated. Hemostasis was achieved with electrocautery and the cavity was packed with quarter-inch Iodoform and sterile 4 x 4 dressings and abdominal pads were placed on top with 3M adhesive tape. The patient tolerated the procedure well without any intraoperative complications. He was then transferred to PACU in stable condition. Aidan Goode DO Davi Skinner MD
[2018-12-17] MEDS: Morphine 2 mg/ml ISec IVP PRN (09:40)
[2018-12-17] MEDS: Vancomycin 1gm in NS 250ml 1 GM/250 ML BAG IVPB SCH (09:45)
[2018-12-17] MEDS: Tmp-Smz 800 mg-160 mg DS Tab PO SCH (09:45)
[2018-12-17] MEDS: [UNRECOGNIZED DRUG - OTHER] PO SCH ×2 (09:46→15:02)
[2018-12-17 11:02] LABS: % CD4 (T HELPER CELL) 8 Percent (30-61); % CD8 (SUPPRESSOR T CELL) 65 Percent (12-42); ABSOLUTE CD4 CELLS 115 Cells/mcL (490-1740); ABSOLUTE CD8 CELLS 932 Cells/mcL (180-1170); ABSOLUTE LYMPHOCYTES 1438 Cells/mcL (850-3900); HELPER/SUPPRESSOR RATIO 0.12 Ratio (0.86-5.00)
--- NOTE | 2018-12-17 11:08 | CP.PCM.PN ---
Subjective - Date & Time of Evaluation Date of Evaluation: 12/17/18 Time of Evaluation: 11:06 - Subjective Subjective: Christine Lewis PGY1 progress Note for Dr. Skinner Pt was examined at bedside this morning. He reports continuation of pain in the rectal area. He denies fever, chills, nausea, or vomiting. He has been having adequate formed bowel movements. Objective - Vital Signs/Intake and Output Vital Signs (last 24 hours): Temp Pulse Resp BP Pulse Ox 98.2 F 73 20 100/56 L 98 12/17/18 06:00 12/17/18 06:00 12/17/18 06:00 12/17/18 06:00 12/17/18 06:00 Intake and Output: 12/17/18 12/17/18 06:59 18:59 Intake Total 720 Output Total 1400 Balance -680 - Medications Medications: Current Medications Fluconazole (Diflucan) 100 mg PO DAILY ESTUARDO; Protocol Last Admin: 12/17/18 09:45 Dose: 100 mg Heparin Sodium (Porcine) (Heparin) 5,000 units SC Q8 ESTUARDO; Protocol Last Admin: 12/17/18 06:27 Dose: Not Given Home Med (Home Med) 1 unit PO ACL ESTUARDO Last Admin: 12/17/18 09:46 Dose: 1 unit Vancomycin HCl (Vancomycin 1gm) 1 gm in 250 mls @ 167 mls/hr IVPB DAILY ESTUARDO; Protocol Last Admin: 12/17/18 09:45 Dose: 167 mls/hr Sodium Chloride (Sodium Chloride 0.9%) 1,000 mls @ 80 mls/hr IV .[id number] ESTUARDO Last Admin: 12/17/18 06:22 Dose: 80 mls/hr Meropenem (Merrem Iv 1 Gm Premix) 1 gm in 50 mls @ 100 mls/hr IVPB Q8 ESTUARDO; Protocol Stop: 12/25/18 22:01 Last Admin: 12/17/18 06:20 Dose: 100 mls/hr Morphine Sulfate (Morphine) 2 mg IVP Q6 PRN PRN Reason: Pain, moderate (4-7) Last Admin: 12/17/18 09:40 Dose: 2 mg Trimethoprim/Sulfamethoxazole (Bactrim Ds Tab) 1 tab PO DAILY ESTUARDO; Protocol Last Admin: 12/17/18 09:45 Dose: 1 tab - Labs Labs: 12/17/18 06:45 12/17/18 06:45 PT 13.4 SECONDS (9.4-12.5) H 12/15/18 06:30 INR 1.19 12/15/18 06:30 APTT 31.5 Seconds (26.9-38.3) 12/15/18 06:30 - Constitutional Appears: Well, No Acute Distress - Head Exam Head Exam: ATRAUMATIC, NORMOCEPHALIC - Eye Exam Eye Exam: EOMI, Normal appearance - ENT Exam ENT Exam: Mucous Membranes Moist - Respiratory Exam Respiratory Exam: NORMAL BREATHING PATTERN. absent: Respiratory Distress - GI/Abdominal Exam GI & Abdominal Exam: Soft. absent: Distended, Tenderness - Rectal Exam Additional comments: 1x1cm healing abscess incision site with minimal serosanguinous drainage or surrounding erythema. - Extremities Exam Extremities Exam: Normal Inspection. absent: Pedal Edema - Back Exam Back Exam: NORMAL INSPECTION - Neurological Exam Neurological Exam: Alert, Awake, Oriented x3 - Psychiatric Exam Psychiatric exam: Normal Affect, Normal Mood Assessment and Plan - Assessment and Plan (Free Text) Assessment: 48yo M with H HIV s/p I&D of perirectal abscess. Plan: - POD #2 I&D of perirectal abscess - packing changed - surgically cleared for discharge - recommending visiting nurse to assist with packing changes - sitz baths at home further recommendations as per Dr. Skinner
[2018-12-17 14:37] VITALS: BP 96/56; PULSE 72; RESP 18
--- NOTE | 2018-12-17 16:40 | CP.PCM.PN ---
<Brody Black - Last Filed: 12/17/18 16:32> Subjective - Date & Time of Evaluation Date of Evaluation: 12/17/18 Time of Evaluation: 08:00 - Subjective Subjective: Brody Black, PGY1 Medicine Progress Note for Dr. Henley Patient seen and examined at bedside this morning. Patient says he no longer has milky discharge from his penis. Denies cp, sob, n/v/d, fever, chills. A full 12 point ROS was conducted and unremarkable except as stated above. Objective - Vital Signs/Intake and Output Vital Signs (last 24 hours): Temp Pulse Resp BP Pulse Ox 98.2 F 72 18 96/56 L 98 12/17/18 14:00 12/17/18 14:00 12/17/18 14:00 12/17/18 14:00 12/17/18 14:00 Intake and Output: 12/17/18 12/17/18 06:59 18:59 Intake Total 720 480 Output Total 1400 800 Balance -680 -320 - Medications Medications: Current Medications Fluconazole (Diflucan) 100 mg PO DAILY ESTUARDO; Protocol Last Admin: 12/17/18 09:45 Dose: 100 mg Heparin Sodium (Porcine) (Heparin) 5,000 units SC Q8 ESTUARDO; Protocol Last Admin: 12/17/18 15:02 Dose: Not Given Home Med (Home Med) 1 unit PO ACL ESTUARDO Last Admin: 12/17/18 15:02 Dose: Not Given Vancomycin HCl (Vancomycin 1gm) 1 gm in 250 mls @ 167 mls/hr IVPB DAILY ESTUARDO; Protocol Last Admin: 12/17/18 09:45 Dose: 167 mls/hr Sodium Chloride (Sodium Chloride 0.9%) 1,000 mls @ 80 mls/hr IV .[id number] ESTUARDO Last Admin: 12/17/18 15:34 Dose: 80 mls/hr Meropenem (Merrem Iv 1 Gm Premix) 1 gm in 50 mls @ 100 mls/hr IVPB Q8 ESTUARDO; Protocol Stop: 12/25/18 22:01 Last Admin: 12/17/18 15:03 Dose: 100 mls/hr Morphine Sulfate (Morphine) 2 mg IVP Q6 PRN PRN Reason: Pain, moderate (4-7) Last Admin: 12/17/18 09:40 Dose: 2 mg Trimethoprim/Sulfamethoxazole (Bactrim Ds Tab) 1 tab PO DAILY ESTUARDO; Protocol Last Admin: 12/17/18 09:45 Dose: 1 tab - Labs Labs: 12/17/18 06:45 12/17/18 06:45 PT 13.4 SECONDS (9.4-12.5) H 12/15/18 06:30 INR 1.19 12/15/18 06:30 APTT 31.5 Seconds (26.9-38.3) 12/15/18 06:30 - Constitutional Appears: Cachectic - Head Exam Head Exam: ATRAUMATIC, NORMAL INSPECTION, NORMOCEPHALIC - Eye Exam Eye Exam: EOMI, Normal appearance - ENT Exam ENT Exam: Mucous Membranes Moist - Respiratory Exam Respiratory Exam: Clear to Ausculation Bilateral, NORMAL BREATHING PATTERN. absent: Accessory Muscle Use, Chest Wall Tenderness, Rales, Rhonchi, Wheezes - Cardiovascular Exam Cardiovascular Exam: RRR, +S1, +S2 - GI/Abdominal Exam GI & Abdominal Exam: Soft, Normal Bowel Sounds. absent: Tenderness - Rectal Exam Additional comments: Patient is s/p per-rectal abscess I&D. Packing is in place. - Exam Additional comments: No lesions on penis. No drainage noted. - Extremities Exam Extremities Exam: Full ROM, Normal Capillary Refill, Normal Inspection. absent: Joint Swelling, Pedal Edema - Back Exam Back Exam: NORMAL INSPECTION - Neurological Exam Neurological Exam: Alert, Awake, Oriented x3 - Psychiatric Exam Psychiatric exam: Normal Affect, Normal Mood - Skin Skin Exam: Dry, Intact, Normal Color, Warm Assessment and Plan - Assessment and Plan (Free Text) Assessment: Patient is a 48 y/o M with PMHx AIDS (non-compliant with HIV medications) and avascular necrosis of the hip who presented to the ED for white, milky penile discharge and rectal pain. Patient admitted for zakia-rectal abscess and is s/p I&D. Patient also admitted for penile discharge 2/2 Gonorrhea. Plan: Zakia-rectal Abscess - s/p I&D on 12/15 - wound cx +Group C strep - c/w warm compresses and sitz bath - c/w pain control with morphine 2mg IVP q6 prn - c/w IV antibiotics - Surgery on consult (Dr. Skinner). Recs appreciated. - CT A/P: perianal abscess formation Penile Discharge / Gonorrhea - Gonorrhea was detected on labs - As per ID recs, given zithromax PO 2g x1 dose - c/w merrem, vanco, and bactrim at this time - blood cx negative (prelim) - UCx negative - RPR and FTA-ABS non-reactive - ID is on consult (Dr. Mendoza). Recs appreciated. AIDS - As per ID, patient should resume his HIV medication at home: Stribild - c/w bactrim given low CD4 count - Absolute CD4 count 115 - Cachectic 2/ AIDS; federal judicial law clerk on consult - Non-compliant with HIV medication at home (Stribild) Anemia of Chronic Disease - Hgb stable at this time - Continue to monitor; no evidence of overt bleeding DVT ppx: hep sc GI ppx: not indicated Diet: regular Physical therapy also on board for weakness. Social work is on board. Dispo: Monitor patient on the floor. Further recs from ID. Case was discussed and reviewed with Attending Physician, Dr. Henley <Rush Henley - Last Filed: 12/17/18 18:13> Objective - Vital Signs/Intake and Output Vital Signs (last 24 hours): Temp Pulse Resp BP Pulse Ox 98.2 F 72 18 96/56 L 98 12/17/18 14:00 12/17/18 14:00 12/17/18 14:00 12/17/18 14:00 12/17/18 14:00 Intake and Output: 12/17/18 12/17/18 06:59 18:59 Intake Total 720 480 Output Total 1400 800 Balance -680 -320 - Medications Medications: Current Medications Fluconazole (Diflucan) 100 mg PO DAILY ESTUARDO; Protocol Last Admin: 12/17/18 09:45 Dose: 100 mg Heparin Sodium (Porcine) (Heparin) 5,000 units SC Q8 ESTUARDO; Protocol Last Admin: 12/17/18 15:02 Dose: Not Given Home Med (Home Med) 1 unit PO ACL ESTUARDO Last Admin: 12/17/18 15:02 Dose: Not Given Vancomycin HCl (Vancomycin 1gm) 1 gm in 250 mls @ 167 mls/hr IVPB DAILY ESTUARDO; Protocol Last Admin: 12/17/18 09:45 Dose: 167 mls/hr Sodium Chloride (Sodium Chloride 0.9%) 1,000 mls @ 80 mls/hr IV .[id number] ESTUARDO Last Admin: 12/17/18 15:34 Dose: 80 mls/hr Meropenem (Merrem Iv 1 Gm Premix) 1 gm in 50 mls @ 100 mls/hr IVPB Q8 ESTUARDO; Protocol Stop: 12/25/18 22:01 Last Admin: 12/17/18 15:03 Dose: 100 mls/hr Morphine Sulfate (Morphine) 2 mg IVP Q6 PRN PRN Reason: Pain, moderate (4-7) Last Admin: 12/17/18 09:40 Dose: 2 mg Trimethoprim/Sulfamethoxazole (Bactrim Ds Tab) 1 tab PO DAILY ESTUARDO; Protocol Last Admin: 12/17/18 09:45 Dose: 1 tab - Labs Labs: 12/17/18 06:45 12/17/18 06:45 PT 13.4 SECONDS (9.4-12.5) H 12/15/18 06:30 INR 1.19 12/15/18 06:30 APTT 31.5 Seconds (26.9-38.3) 12/15/18 06:30 Attending/Attestation - Attestation I have personally seen and examined this patient.: Yes I have fully participated in the care of the patient.: Yes I have reviewed all pertinent clinical information, including history, physical exam and plan: Yes Notes (Text): 12/17/18 18:10 48 year old male with past medical history of HIV/AIDs, medication noncompliance and history of avascular necrosis of hip who presented with complaint of penile discharge and rectal pain. He was found to have zakia-rectal abscess on CT scan and is s/p I&D POD #2. Continue with iv antibiotics as per ID while awaiting cultures which is so far growing group c strep. Continue with wound care and dressing changes as per surgery. He also tested positive for gonorrhea. Given dose of azithromycin per ID. Recommended patient also to inform partner(s) for testing/treatment. Rush Henley MD Hospitalist.
--- NOTE | 2018-12-17 21:59 | CP.PCM.PN ---
Subjective - Date & Time of Evaluation Date of Evaluation: 12/17/18 Time of Evaluation: 07:50 - Subjective Subjective: Still with perinanal pain but no discharge, no fevers, not in distress. Objective - Vital Signs/Intake and Output Vital Signs (last 24 hours): Temp Pulse Resp BP Pulse Ox 97.9 F 64 18 102/57 L 98 12/16/18 14:00 12/16/18 14:00 12/16/18 14:00 12/16/18 14:00 12/16/18 14:00 Intake and Output: 12/16/18 12/17/18 18:59 06:59 Intake Total 480 720 Output Total 600 700 Balance -120 20 - Medications Medications: Current Medications Heparin Sodium (Porcine) (Heparin) 5,000 units SC Q8 ESTUARDO; Protocol Last Admin: 12/16/18 22:46 Dose: Not Given Home Med (Home Med) 1 unit PO ACL ESTUARDO Vancomycin HCl (Vancomycin 1gm) 1 gm in 250 mls @ 167 mls/hr IVPB DAILY ESTUARDO; Protocol Last Admin: 12/16/18 09:40 Dose: 167 mls/hr Sodium Chloride (Sodium Chloride 0.9%) 1,000 mls @ 80 mls/hr IV .[id number] ESTUARDO Last Admin: 12/16/18 11:26 Dose: 80 mls/hr Meropenem (Merrem Iv 1 Gm Premix) 1 gm in 50 mls @ 100 mls/hr IVPB Q8 ESTUARDO; Protocol Stop: 12/25/18 22:01 Last Admin: 12/16/18 22:46 Dose: 100 mls/hr Morphine Sulfate (Morphine) 2 mg IVP Q6 PRN PRN Reason: Pain, moderate (4-7) Last Admin: 12/16/18 16:51 Dose: 2 mg Trimethoprim/Sulfamethoxazole (Bactrim Ds Tab) 1 tab PO DAILY ESTUARDO; Protocol Last Admin: 12/16/18 09:40 Dose: 1 tab - Labs Labs: 12/16/18 06:45 12/16/18 06:45 PT 13.4 SECONDS (9.4-12.5) H 12/15/18 06:30 INR 1.19 12/15/18 06:30 APTT 31.5 Seconds (26.9-38.3) 12/15/18 06:30 - Constitutional Appears: Chronically Ill - Head Exam Head Exam: NORMAL INSPECTION - ENT Exam Additional comments: oral thrush - Respiratory Exam Respiratory Exam: Decreased Breath Sounds - Cardiovascular Exam Cardiovascular Exam: +S1, +S2 - GI/Abdominal Exam GI & Abdominal Exam: Soft. absent: Tenderness Assessment and Plan - Assessment and Plan (Free Text) Plan: Assessment Perianal abscess chronic HIV infection/AIDS oral candidiasis urine positive for Gonorrhea history of bronchitis history of avascular necrosis of the hip Plan continue Vancomycin and Merrem pending cultures from the abscess since patient is allergic to PCN, may use high dose Zithromax (2 gm) PO x 1 for the gonorrhea in the urine continue Stribild (cART) continue PJP prophylaxis should follow up with HIV provider as outpatient
--- NOTE | 2018-12-18 08:48 | CP.PCM.DIS ---
<WayneBrody - Last Filed: 12/18/18 08:36> Provider - Provider Date of Admission: 12/15/18 01:48 Attending physician: Rush Henley MD Primary care physician: Carlos Jeter MD Consults: 12/15/18 02:55 General Surgery Consult Routine Comment: Consulting Provider: Davi Skinner Consulting Physician: Davi Skinner Reason for Consult: Perirectal abscess 12/15/18 02:56 Infectious Disease Consult Routine Comment: Consulting Provider: Justino Mendoza Consulting Physician: Justino Mendoza Reason for Consult: HIV/Perirectal abscess Time Spent in preparation of Discharge (in minutes): 35 Hospital Course - Lab Results Lab Results: Micro Results 12/15/18 06:15 Blood Blood Culture - Preliminary NO GROWTH AFTER 3 DAYS 12/15/18 15:27 Abscess - Abscess Gram Stain - Final 12/15/18 15:27 Abscess - Abscess Wound Culture - Final Group C Streptococcus 12/15/18 00:15 Urine,Clean Catch Urine Culture - Final No Growth (<1,000 CFU/ML) Most Recent Lab Values WBC 4.3 10^3/uL (4.5-11.0) L 12/17/18 06:45 RBC 3.74 10^6/uL (3.5-6.1) 12/17/18 06:45 Hgb 10.3 g/dL (14.0-18.0) L 12/17/18 06:45 Hct 33.4 % (42.0-52.0) L 12/17/18 06:45 MCV 89.3 fl (80.0-105.0) 12/17/18 06:45 MCH 27.5 pg (25.0-35.0) 12/17/18 06:45 MCHC 30.8 g/dl (31.0-37.0) L 12/17/18 06:45 RDW 14.3 % (11.5-14.5) 12/17/18 06:45 Plt Count 259 10^3/uL (120.0-450.0) 12/17/18 06:45 MPV 9.9 fl (7.0-11.0) 12/17/18 06:45 Neut % (Auto) 43.9 % (50.0-68.0) L 12/17/18 06:45 Lymph % (Auto) 26.9 % (22.0-35.0) 12/17/18 06:45 [place] % (Auto) 15.9 % (1.0-6.0) H 12/17/18 06:45 Eos % (Auto) 13.1 % (1.5-5.0) H 12/17/18 06:45 Baso % (Auto) 0.2 % (0.0-3.0) 12/17/18 06:45 Lymph # (Auto) 1.2 (1.2-3.4) 12/17/18 06:45 [place] # (Auto) 0.7 (0.1-0.6) H 12/17/18 06:45 Eos # (Auto) 0.6 (0.0-0.7) 12/17/18 06:45 Baso # (Auto) 0.01 K/mm3 (0.0-2.0) 12/17/18 06:45 Absolute Neuts (auto) 1.87 (1.4-6.5) 12/17/18 06:45 Differential Comment See pathology report 12/15/18 08:30 PT 13.4 SECONDS (9.4-12.5) H 12/15/18 06:30 INR 1.19 12/15/18 06:30 APTT 31.5 Seconds (26.9-38.3) 12/15/18 06:30 Sodium 140 mmol/L (132-148) 12/17/18 06:45 Potassium 4.2 mmol/L (3.6-5.0) 12/17/18 06:45 Chloride 105 mmol/L (98-107) 12/17/18 06:45 Carbon Dioxide 30 mmol/L (21-33) 12/17/18 06:45 Anion Gap 9 (10-20) L 12/17/18 06:45 BUN 21 mg/dL (7-21) 12/17/18 06:45 Creatinine 0.8 mg/dl (0.8-1.5) 12/17/18 06:45 Est GFR ( Amer) > 60 12/17/18 06:45 Est GFR (Non-Af Amer) > 60 12/17/18 06:45 Random Glucose 99 mg/dL (70-110) 12/17/18 06:45 Calcium 8.2 mg/dL (8.4-10.5) L 12/17/18 06:45 Magnesium 2.1 mg/dL (1.7-2.2) 12/17/18 06:45 Iron 38 ug/dL (45-180) L 12/15/18 08:30 TIBC 195 ug/dL (261-462) L 12/15/18 08:30 % Saturation 20 % (20-55) 12/15/18 08:30 Ferritin 343.0 ng/mL 12/15/18 08:30 Total Bilirubin 0.1 mg/dL (0.2-1.3) L 12/17/18 06:45 AST 32 U/L (17-59) 12/17/18 06:45 ALT < 6 U/L (7-56) L 12/17/18 06:45 Alkaline Phosphatase 86 U/L (38-126) 12/17/18 06:45 Total Protein 7.3 g/dL (5.8-8.3) 12/17/18 06:45 Albumin 3.1 g/dL (3.0-4.8) 12/17/18 06:45 Globulin 4.3 gm/dL 12/17/18 06:45 Albumin/Globulin Ratio 0.7 (1.1-1.8) L 12/17/18 06:45 Urine Color Yellow (YELLOW) 12/15/18 00:15 Urine Appearance Sl cloudy (CLEAR) 12/15/18 00:15 Urine pH 7.0 (4.7-8.0) 12/15/18 00:15 Ur Specific Helen 1.015 (1.005-1.035) 12/15/18 00:15 Urine Protein 30 mg/dL (<30 mg/dL) H 12/15/18 00:15 Urine Glucose (UA) Negative mg/dL (NEGATIVE) 12/15/18 00:15 Urine Ketones Negative mg/dL (NEGATIVE) 12/15/18 00:15 Urine Blood Small (NEGATIVE) H 12/15/18 00:15 Urine Nitrate Negative (NEGATIVE) 12/15/18 00:15 Urine Bilirubin Negative (NEGATIVE) 12/15/18 00:15 Urine Urobilinogen 2.0 E.U./dL (<1 E.U./dL) H 12/15/18 00:15 Ur Leukocyte Esterase Moderate Darron/uL (NEGATIVE) H 12/15/18 00:15 Urine RBC 0 - 2 /hpf (0-2) 12/15/18 00:15 Urine WBC Tntc /hpf (0-6) H 12/15/18 00:15 Ur Epithelial Cells 0 - 2 /hpf (0-5) 12/15/18 00:15 Urine Bacteria Small /hpf (NONE) 12/15/18 00:15 Absolute Lymphs (Flow) 1438 Cells/mcL (850-3900) 12/15/18 06:30 % CD4 Cells 8 Percent (30-61) L 12/15/18 06:30 Absolute CD4 Count 115 Cells/mcL (490-1740) L 12/15/18 06:30 T-Help/Suppress Ratio 0.12 Ratio (0.86-5.00) L 12/15/18 06:30 % CD8 Cells 65 Percent (12-42) H 12/15/18 06:30 Absolute CD8 Count 932 Cells/mcL (180-1170) 12/15/18 06:30 T-Lymph Analys Comment See note 12/15/18 06:30 RPR Nonreactive (NONREACTIVE) 12/15/18 08:30 T.pallidum Ab (FTA-ABS) Nonreactive (Nonreactive) 12/15/18 13:10 C.trachomatis RNA (TMA) Not detected (Not Detected) 12/15/18 00:15 HIV-1 RNA Qnt (RT-PCR) 5.39 (Not Detected) H 12/15/18 08:30 N.gonorrhoeae RNA (TMA) Detected (Not Detected) H 12/15/18 00:15 - Hospital Course Hospital Course: Brody Black, PGY1 Discharge Summary for Dr. Henley Patient is a 48 year old male with PMHx AIDS, avascular necrosis of the hip who presents with complaint of penile discharge and rectal pain. Patient stated he has had these symptoms for a couple of months. Patient said he has multiple female partners. He also mentioned that his CD4 count is very low and viral load is high. Patient is non-compliant with his HIV medication: Stribild. Patient was noted to have milky white discharge from penis. Patient admitted for penile discharge 2/2 gonorrhea. Gonorrhea was positive on lab studies. For patient's rectal pain, he was found to have a edwin-anal abscess. As a result, surgery was consulted. Surgery did an I&D on 12/15. They also recommended warm compress and sitz bath. Patient educated on risks of AIDS and being compliant with medication. Infectious Disease was also on board given non-compliance to HIV and adjustments in antibiotic coverage. During hospital course patient was on merrem, vanco, and bactrim for antibiotic coverage given gonorrhea and penicillin allergy. As per ID, patient also given zithromax 2g PO x1 dose. During hospital course, patient had a CD4 count 115. Cx of abscess also showed group C strep. Patient left against medical advice overnight on 12/17. Discharge Exam - Additional Findings Additional findings: Physical exam unable to be obtained as patient left against medical advice overnight. Discharge Plan - Follow Up Plan Condition: STABLE Disposition: AGAINST MEDICAL ADVICE Additional Instructions: You are leaving against medical advice. Please return to the nearest emergency department if your symptoms reoccur. Referrals: Carlos Jeter MD [Primary Care Provider] - <Rush Henley - Last Filed: 12/18/18 09:13> Provider - Provider Date of Admission: 12/15/18 01:48 Attending physician: Rush Henley MD Primary care physician: Carlos Jeter MD Consults: 12/15/18 02:55 General Surgery Consult Routine Comment: Consulting Provider: Davi Skinner Consulting Physician: Davi Skinner Reason for Consult: Perirectal abscess 12/15/18 02:56 Infectious Disease Consult Routine Comment: Consulting Provider: Justino Mendoza Consulting Physician: Justino Mendoza Reason for Consult: HIV/Perirectal abscess Hospital Course - Lab Results Lab Results: Micro Results 12/15/18 06:15 Blood Blood Culture - Preliminary NO GROWTH AFTER 3 DAYS 12/15/18 15:27 Abscess - Abscess Gram Stain - Final 12/15/18 15:27 Abscess - Abscess Wound Culture - Final Group C Streptococcus 12/15/18 00:15 Urine,Clean Catch Urine Culture - Final No Growth (<1,000 CFU/ML) Most Recent Lab Values WBC 4.3 10^3/uL (4.5-11.0) L 12/17/18 06:45 RBC 3.74 10^6/uL (3.5-6.1) 12/17/18 06:45 Hgb 10.3 g/dL (14.0-18.0) L 12/17/18 06:45 Hct 33.4 % (42.0-52.0) L 12/17/18 06:45 MCV 89.3 fl (80.0-105.0) 12/17/18 06:45 MCH 27.5 pg (25.0-35.0) 12/17/18 06:45 MCHC 30.8 g/dl (31.0-37.0) L 12/17/18 06:45 RDW 14.3 % (11.5-14.5) 12/17/18 06:45 Plt Count 259 10^3/uL (120.0-450.0) 12/17/18 06:45 MPV 9.9 fl (7.0-11.0) 12/17/18 06:45 Neut % (Auto) 43.9 % (50.0-68.0) L 12/17/18 06:45 Lymph % (Auto) 26.9 % (22.0-35.0) 12/17/18 06:45 [place] % (Auto) 15.9 % (1.0-6.0) H 12/17/18 06:45 Eos % (Auto) 13.1 % (1.5-5.0) H 12/17/18 06:45 Baso % (Auto) 0.2 % (0.0-3.0) 12/17/18 06:45 Lymph # (Auto) 1.2 (1.2-3.4) 12/17/18 06:45 [place] # (Auto) 0.7 (0.1-0.6) H 12/17/18 06:45 Eos # (Auto) 0.6 (0.0-0.7) 12/17/18 06:45 Baso # (Auto) 0.01 K/mm3 (0.0-2.0) 12/17/18 06:45 Absolute Neuts (auto) 1.87 (1.4-6.5) 12/17/18 06:45 Differential Comment See pathology report 12/15/18 08:30 PT 13.4 SECONDS (9.4-12.5) H 12/15/18 06:30 INR 1.19 12/15/18 06:30 APTT 31.5 Seconds (26.9-38.3) 12/15/18 06:30 Sodium 140 mmol/L (132-148) 12/17/18 06:45 Potassium 4.2 mmol/L (3.6-5.0) 12/17/18 06:45 Chloride 105 mmol/L (98-107) 12/17/18 06:45 Carbon Dioxide 30 mmol/L (21-33) 12/17/18 06:45 Anion Gap 9 (10-20) L 12/17/18 06:45 BUN 21 mg/dL (7-21) 12/17/18 06:45 Creatinine 0.8 mg/dl (0.8-1.5) 12/17/18 06:45 Est GFR ( Amer) > 60 12/17/18 06:45 Est GFR (Non-Af Amer) > 60 12/17/18 06:45 Random Glucose 99 mg/dL (70-110) 12/17/18 06:45 Calcium 8.2 mg/dL (8.4-10.5) L 12/17/18 06:45 Magnesium 2.1 mg/dL (1.7-2.2) 12/17/18 06:45 Iron 38 ug/dL (45-180) L 12/15/18 08:30 TIBC 195 ug/dL (261-462) L 12/15/18 08:30 % Saturation 20 % (20-55) 12/15/18 08:30 Ferritin 343.0 ng/mL 12/15/18 08:30 Total Bilirubin 0.1 mg/dL (0.2-1.3) L 12/17/18 06:45 AST 32 U/L (17-59) 12/17/18 06:45 ALT < 6 U/L (7-56) L 12/17/18 06:45 Alkaline Phosphatase 86 U/L (38-126) 12/17/18 06:45 Total Protein 7.3 g/dL (5.8-8.3) 12/17/18 06:45 Albumin 3.1 g/dL (3.0-4.8) 12/17/18 06:45 Globulin 4.3 gm/dL 12/17/18 06:45 Albumin/Globulin Ratio 0.7 (1.1-1.8) L 12/17/18 06:45 Urine Color Yellow (YELLOW) 12/15/18 00:15 Urine Appearance Sl cloudy (CLEAR) 12/15/18 00:15 Urine pH 7.0 (4.7-8.0) 12/15/18 00:15 Ur Specific Helen 1.015 (1.005-1.035) 12/15/18 00:15 Urine Protein 30 mg/dL (<30 mg/dL) H 12/15/18 00:15 Urine Glucose (UA) Negative mg/dL (NEGATIVE) 12/15/18 00:15 Urine Ketones Negative mg/dL (NEGATIVE) 12/15/18 00:15 Urine Blood Small (NEGATIVE) H 12/15/18 00:15 Urine Nitrate Negative (NEGATIVE) 12/15/18 00:15 Urine Bilirubin Negative (NEGATIVE) 12/15/18 00:15 Urine Urobilinogen 2.0 E.U./dL (<1 E.U./dL) H 12/15/18 00:15 Ur Leukocyte Esterase Moderate Darron/uL (NEGATIVE) H 12/15/18 00:15 Urine RBC 0 - 2 /hpf (0-2) 12/15/18 00:15 Urine WBC Tntc /hpf (0-6) H 12/15/18 00:15 Ur Epithelial Cells 0 - 2 /hpf (0-5) 12/15/18 00:15 Urine Bacteria Small /hpf (NONE) 12/15/18 00:15 Absolute Lymphs (Flow) 1438 Cells/mcL (850-3900) 12/15/18 06:30 % CD4 Cells 8 Percent (30-61) L 12/15/18 06:30 Absolute CD4 Count 115 Cells/mcL (490-1740) L 12/15/18 06:30 T-Help/Suppress Ratio 0.12 Ratio (0.86-5.00) L 12/15/18 06:30 % CD8 Cells 65 Percent (12-42) H 12/15/18 06:30 Absolute CD8 Count 932 Cells/mcL (180-1170) 12/15/18 06:30 T-Lymph Analys Comment See note 12/15/18 06:30 RPR Nonreactive (NONREACTIVE) 12/15/18 08:30 T.pallidum Ab (FTA-ABS) Nonreactive (Nonreactive) 12/15/18 13:10 C.trachomatis RNA (TMA) Not detected (Not Detected) 12/15/18 00:15 HIV-1 RNA Qnt (RT-PCR) 5.39 (Not Detected) H 12/15/18 08:30 N.gonorrhoeae RNA (TMA) Detected (Not Detected) H 12/15/18 00:15 Attending/Attestation - Attestation I have reviewed all pertinent clinical information, including history, physical exam and plan: Yes Notes (Text): 12/18/18 09:12 patient left AMA overnight please refer to progness note earlier during day
== END 2018-12-17 21:38 | disposition left against medical advice (07) | DRG 704 ==
LOC: ED 22:00 → ERH 12-15 01:48 → 5RNO 12-15 03:14
PROVIDERS: ADMIT Internal Medicine; ATTEND Internal Medicine
PROC: 0D9P0ZZ Drainage of Rectum, Open Approach (ICD-10-PCS; principal; 2018-12-15 14:00)
DX: K61.2 Anorectal abscess (principal); B20 Human immunodeficiency virus [HIV] disease; B37.0 Candidal stomatitis; R64 Cachexia; A54.9 Gonococcal infection, unspecified; K57.30 Diverticulosis of large intestine without perforation or abscess without bleeding; K59.00 Constipation, unspecified; K64.9 Unspecified hemorrhoids; Z88.0 Allergy status to penicillin; Z91.14 Patient's other noncompliance with medication regimen; M47.9 Spondylosis, unspecified; N40.0 Benign prostatic hyperplasia without lower urinary tract symptoms; N41.9 Inflammatory disease of prostate, unspecified; Z74.01 Bed confinement status; D72.819 Decreased white blood cell count, unspecified; D63.8 Anemia in other chronic diseases classified elsewhere; Z68.1 Body mass index [BMI] 19.9 or less, adult